=== PATIENT | female | born 1955 | race Caucasian/White ===

== ENCOUNTER 2017-03-23 10:53 | Emergency (ER) | payer BC, OTHER ==
[~2017-03-23] VITALS: Ht 152.4 cm; Wt 55.0 kg
[~2017-03-23 10:53] MED LIST: ALPR.25 PO; ASPI325T PO; CLIN150 PO; LEVO175T2 PO; POLY10O RIGHT EYE; TELM40 PO
[2017-03-23 10:59] VITALS: BP 161/119; PULSE 102; RESP 16; TEMP 98.1; O2SAT 98
[2017-03-23] MEDS ORDERED: CLIN150 PO (11:13)
--- NOTE | 2017-03-23 11:13 | PD ---
HPI Chief Complaint: Skin Problem Time Seen by Provider: 11:02 Travel History International Travel<30 days: No Contact w/Intl Traveler<30days: No Traveled to known affect area: No History of Present Illness HPI The patient is a 62-year-old female who presents to the emergency department for swelling of the right aspect of the nose, nasal bridge, and just inferior to the right eye. The patient does have a previous history of preseptal cellulitis and septal cellulitis requiring admission and IV antibiotics. The patient states the swelling and erythema started yesterday, has slightly progressed. She denies any fever, chills, sweats, or headaches. She denies any visual changes or difficulty/pain with extraocular muscle movement. She does have a history of CML which is currently in remission. She is followed by the oncologist, Dr. Kang. The patient's primary physician is Dr. Garcia. Symptoms are mild, similar to previous preseptal cellulitis excepted is not involved both sides of the nose, and there are no current alleviating factors. PFSH Past Medical History Anxiety: Yes Cancer: No Cardiovascular Problems: No Diabetes: No Diminished Hearing: No Endocrine: Yes Genitourinary: No Hepatitis: No Hiatal Hernia: No Hypertension: Yes Immune Disorder: No Musculoskeletal: Yes (OSTEOPOROSIS) Neurologic: Yes (OPTHALMIC MIGRAINES) Psychiatric: Yes (ANXIETY,DEPRESSION) Respiratory: No Thyroid Disease: Yes (HYPOTHYROID) Menopausal: Yes Past Surgical History Abdominal Surgery: Yes (APPENDECTOMY) AICD: No Appendectomy: Yes Body Medical Devices: LEUKEMIA Eye Surgery: Yes (JUDY. CATARACT REMOVAL) Gynecologic Surgery: Yes (RIGHT OVARY REMOVED) Joint Replacement: Yes (RIGHT KNEE REPLACEMENT) Pacemaker: No Tonsillectomy: Yes Other Surgery: Yes Social History Alcohol Use: No Tobacco Use: No Substance Use: No Allergies-Medications (Allergen,Severity, Reaction): Coded Allergies: acetaminophen (Unverified Allergy, Severe, ITCHING, 03/23/17) codeine (Unverified Allergy, Severe, ITCHING, 03/23/17) hydrocodone (Unverified Allergy, Severe, ITCHING, 03/23/17) Reported Meds & Prescriptions Reported Meds & Active Scripts Active Cleocin (Clindamycin HCl) 150 Mg Cap 300 Mg PO Q6 10 Days Polytrim Opth (Polymyxin/Trimethoprim Sulfate) 10 Ml Soln 1 Drop RIGHT EYE Q6HR 7 Days Xanax 0.25 Mg (Alprazolam) Alprazolam 0.25 mg Tab 1 Tab PO TID Aspirin 325 Mg Tab (Aspirin) 325 Mg Tab 325 Mg PO BID Reported Micardis (Telmisartan) 40 Mg Tab 40 Mg PO DAILY Levothyroxine 175 mcg (Levothyroxine Sodium) 175 Mcg Tab 175 Mcg PO DAILY Review of Systems Except as stated in HPI: all other systems reviewed are Neg General / Constitutional: No: Fever, Chills HENT: Positive: Other (as noted in history of present illness), No: Congestion Gastrointestinal: No: Nausea, Vomiting Skin: Positive Other (as noted in history present illness) Hematologic/Lymphatic: Positive: Other (history of CML in remission) Physical Exam Narrative GENERAL: Awake, alert, pleasant 62-year-old female who appears her stated age and is in no acute respiratory distress. SKIN: Focused skin assessment warm/dry. HEAD: Atraumatic. Normocephalic. EYES: Pupils equal and round. No scleral icterus. No injection or drainage. Extraocular muscles are intact. Pupils are 4 mm bilateral and reactive. ENT: No nasal bleeding or discharge. Mucous membranes pink and moist. Visualization of the nares bilaterally is unremarkable. The nasal bridge and right aspect of nose is slightly swollen and erythematous but no palpable abscess. NECK: Trachea midline. No JVD. MUSCULOSKELETAL: No obvious deformities. No clubbing. No cyanosis. No edema. NEUROLOGICAL: Awake and alert. No obvious cranial nerve deficits. Motor grossly within normal limits. Normal speech. PSYCHIATRIC: Appropriate mood and affect; insight and judgment normal. Data Data Last Documented VS Vital Signs Date Time Temp Pulse Resp B/P (MAP) Pulse Ox O2 Delivery O2 Flow Rate FiO2 03/23/17 10:59 98.1 102 16 161/119 (133) 98 Orders Orders Clindamycin (Cleocin) (03/23/17 11:15) [facility] Medical Decision Making Medical Screen Exam Complete: Yes Emergency Medical Condition: Yes Medical Record Reviewed: Yes Differential Diagnosis Differential diagnosis includes preseptal cellulitis, orbital cellulitis, cellulitis, abscess, sinusitis. Narrative Course The patient's physical examination is consistent with superficial cellulitis of the right nasal bridge and right maxillary area, ask ocular muscles are intact, do not believe this is orbital cellulitis. The patient will be placed on clindamycin to cover for staph and MRSA. She is advised to follow-up with a primary physician in 2-3 days to evaluate for cellulitis and return sooner if symptoms worsen or progress. Patient agrees and understands. Diagnosis Primary Impression: Preseptal cellulitis Patient Instructions: General Instructions Additional Instructions: Clindamycin as directed. Follow-up with her primary physician in 2-3 days for reevaluation. Return sooner if symptoms worsen or progress. Med/Other Pt SpecificInfo: Prescription(s) given Scripts Clindamycin (Cleocin) 150 Mg Cap 150 MG PO Q6H for Infection for 10 Days, #40 CAP 0 Refills Prov: Yury Manuel MD 03/23/17 Disposition: 01 DISCHARGE HOME Condition: Stable Yury Manuel MD Mar 23, 2017 11:13
[2017-03-23] MEDS ORDERED: CLINDAMYCIN 150 MG CAP PO ONE (11:15)
[2017-03-23] MEDS ORDERED: CITRTAB11 PO (11:17)
[2017-03-23] MEDS ORDERED: ASPI81CH6 CHEW (11:17)
[2017-03-23] MEDS ORDERED: TELM1TAB PO (11:17)
[2017-03-23] MEDS ORDERED: MULT1TAB46 (11:17)
[2017-03-23] MEDS ORDERED: LEVO175T2 PO (11:17)
[2017-03-23] MEDS ORDERED: ALPR0.25 PO (11:17)
== END 2017-03-23 11:27 | disposition home or self-care (01) ==
LOC: PHEFT 10:53
DX: L03.213 Periorbital cellulitis (principal); I10 Essential (primary) hypertension; F32.9 Major depressive disorder, single episode, unspecified; Z88.5 Allergy status to narcotic agent; Z79.899 Other long term (current) drug therapy
CPT/HCPCS: 99283